=== PATIENT | female | born 1995 | race American Indian/Alaskan Native ===

== ENCOUNTER 2017-05-18 18:42 | Outpatient (CLI) | payer MEDICAID, OTHER ==
[2017-05-18 19:37] VITALS: BP 126/72
[2017-05-18 19:58] LABS: Bilirubin,Urine NEG (Negative); Blood,Urine SM (Negative); Mucus,Urine FEW /HPF; Nitrite,Urine NEG (Negative); Protein,Urine <15 mg/dL mg/dL (Negative); Urobilinogen,Urine < 2.0 mg/dL (<2.0)
[2017-05-18 19:59] LABS: Color,Urine Yellow (Yellow)
[2017-05-18] MEDS ORDERED: TYLENOL PO ONE (20:00)
[2017-05-18] MEDS ORDERED: LACTATED RINGERS 500 ML IV ONE (20:07)
== END 2017-05-18 20:15 | disposition home or self-care (01) ==
LOC: EDSTATUS 18:59 → TRG 19:01
PROVIDERS: ATTEND Obstetrics & Gynecology
DX: O26.892 Other specified pregnancy related conditions, second trimester (principal); R10.9 Unspecified abdominal pain; R25.2 Cramp and spasm; Z3A.24 24 weeks gestation of pregnancy
CPT/HCPCS: 59025; 81001

== ENCOUNTER 2017-06-30 21:18 | Outpatient (CLI) | payer OTHER ==
[2017-06-30 21:43] VITALS: BP 117/61
[2017-06-30] MEDS ORDERED: LACTATED RINGERS 1,000 ML IV ONE (22:14)
[2017-06-30 23:07] LABS: Bilirubin,Urine NEG (Negative); Blood,Urine NEG (Negative); Color,Urine Yellow (Yellow); Protein,Urine <15 mg/dL mg/dL (Negative)
== END 2017-06-30 23:35 | disposition home or self-care (01) ==
LOC: TRG 21:18
PROVIDERS: ATTEND Obstetrics & Gynecology
DX: O26.893 Other specified pregnancy related conditions, third trimester (principal); R25.2 Cramp and spasm; Z3A.29 29 weeks gestation of pregnancy
CPT/HCPCS: 59025; 81001

== ENCOUNTER 2017-07-24 00:56 | Outpatient (CLI) | payer OTHER ==
[2017-07-24] MEDS ORDERED: LACTATED RINGERS 1,000 ML IV ONE (01:03)
[2017-07-24 01:11] VITALS: BP 121/67
[2017-07-24 01:27] LABS: Bilirubin,Urine NEG (Negative); Blood,Urine NEG (Negative); Color,Urine Yellow (Yellow); Protein,Urine <15 mg/dL mg/dL (Negative); Urobilinogen,Urine < 2.0 mg/dL (<2.0)
[2017-07-24] MEDS: BRETHINE SUB-Q SCH ×2 (02:02→02:24)
== END 2017-07-24 03:15 | disposition home or self-care (01) ==
LOC: TRG 00:56
PROVIDERS: ATTEND Obstetrics & Gynecology
DX: O47.03 False labor before 37 completed weeks of gestation, third trimester (principal); Z3A.33 33 weeks gestation of pregnancy
CPT/HCPCS: 59025; 81001; 96360; 96361; J3105; J7120; 96370

== ENCOUNTER 2017-09-23 12:08 | Emergency (ER) | payer MEDICAID ==
[2017-09-23 12:26] VITALS: BP 138/91
[2017-09-23 13:58] LABS: Basophils % (Auto) 0.4 % (0.0-1.8); Eosinophils # (Auto) 0.1 K/mm3 (0.0-0.4); Eosinophils % (Auto) 2.7 % (0.0-4.3); Hematocrit 39.9 % (30.3-42.9); Hemoglobin 12.5 gm/dl (10.1-14.3); Lymphocytes # (Auto) 1.7 K/mm3 (1.2-5.4); Lymphocytes % (Auto) 34.7 % (13.4-35.0); Mean Corpuscular HGB Conc 31 % (30-34); Mean Corpuscular Hemoglobin 27 pg (28-32); Mean Corpuscular Volume 85 fl (79-97); Monocytes # (Auto) 0.3 K/mm3 (0.0-0.8); Monocytes % (Auto) 5.4 % (0.0-7.3); Platelet Count 203 K/mm3 (140-440); Red Blood Count 4.69 M/mm3 (3.65-5.03); Red Cell Distribution Width 16.6 % (13.2-15.2)
--- NOTE | 2017-09-23 14:01 | Emergency Department Report ---
ED Chest Pain HPI - General Chief Complaint: Chest Pain Stated Complaint: CHEST PAIN Time Seen by Provider: 09/23/17 13:50 Source: patient Mode of arrival: Ambulatory Limitations: No Limitations - History of Present Illness Initial Comments: 22-year-old female developed chest pain while at rest. Central chest pain radiating to neck and back. Lasted 15-20 minutes. 4 weeks s/p . History of gestational diabetes and -induced hypertension. Mother had NH age 34 MD Complaint: chest pain -: Sudden, minutes(s) (15-20) Onset: during rest Pain Location: left chest Pain Radiation: back, neck Severity: moderate Severity scale (0 -10): 7 Quality: heaviness, dull Consistency: constant Improves With: other (aspirin gaviscon improved) Worsens With: nothing Aspirin use within the Past 7 Days: (1) Yes - Related Data Home Medications Medication Instructions Recorded Confirmed Last Taken Pnv No.95/Ferrous Fum/Folic AC 1 tab PO QDAY 07/24/17 07/24/17 07/23/17 [ Vitamins Tablet] Allergies Allergy/AdvReac Type Severity Reaction Status Date / Time No Known Allergies Allergy Verified 08/31/13 22:31 Heart Score - HEART Score History: Slightly suspicious EKG: Normal Age: < 45 Risk factors: 1-2 risk factors Troponin: < normal limit HEART Score: 1 ED Review of Systems ROS: Stated complaint: CHEST PAIN Other details as noted in HPI Comment: All other systems reviewed and negative Constitutional: denies: chills, fever Respiratory: denies: cough, shortness of breath, wheezing Endocrine: no symptoms reported Gastrointestinal: denies: abdominal pain, nausea, diarrhea Skin: denies: rash, lesions Psychiatric: denies: anxiety, depression Hematological/Lymphatic: denies: easy bleeding, easy bruising ED Past Medical Hx - Past Medical History Hx Hypertension: No Hx Congestive Heart Failure: No Hx Diabetes: No Hx Deep Vein Thrombosis: No Hx Renal Disease: No Hx Sickle Cell Disease: No Hx Seizures: No Hx Asthma: No Hx COPD: No Hx HIV: No - Social History Smoking Status: Never Smoker Substance Use Type: None - Medications Home Medications: Home Medications Medication Instructions Recorded Confirmed Last Taken Type Pnv No.95/Ferrous Fum/Folic AC 1 tab PO QDAY 07/24/17 07/24/17 07/23/17 History [ Vitamins Tablet] ED Physical Exam - General Limitations: No Limitations General appearance: alert, in no apparent distress - Head Head exam: Present: atraumatic, normocephalic - Eye Eye exam: Present: normal appearance - ENT ENT exam: Present: mucous membranes moist - Neck Neck exam: Present: normal inspection. Absent: tenderness, meningismus - Respiratory Respiratory exam: Present: normal lung sounds bilaterally. Absent: respiratory distress, wheezes, rales, rhonchi - Cardiovascular Cardiovascular Exam: Present: regular rate, normal rhythm, normal heart sounds. Absent: systolic murmur, diastolic murmur, rubs, gallop - GI/Abdominal GI/Abdominal exam: Present: soft, normal bowel sounds. Absent: distended, tenderness, guarding, rebound - Extremities Exam Extremities exam: Present: normal inspection - Back Exam Back exam: Present: normal inspection - Neurological Exam Neurological exam: Present: alert, oriented X3 - Psychiatric Psychiatric exam: Present: normal affect, normal mood - Skin Skin exam: Present: warm, dry, intact, normal color. Absent: rash ED Course Vital Signs 09/23/17 12:18 Temperature 98.9 F Pulse Rate 67 Blood Pressure 138/91 O2 Sat by Pulse 100 Oximetry ED Medical Decision Making - Lab Data Result diagrams: 09/23/17 13:41 09/23/17 13:41 - EKG Data 09/23/17 14:05 rate 70 beats per minute no signs of pericarditis NSR nl rate nl axis nl intervals no ST-T signs of ischemia no ST elevation - Medical Decision Making chest pain low risk for ACS PERC negative d-dimer < 250 Possible dyspepsia GERD Given reassurance. Critical care attestation.: If time is entered above; I have spent that time in minutes in the direct care of this critically ill patient, excluding procedure time. ED Disposition Clinical Impression: Chest pain Disposition: DC-01 TO HOME OR SELFCARE Is pt being admited?: No Does the pt Need Aspirin: No Condition: Stable Instructions: Chest Pain (ED) Referrals: [facility] [Outside] - 3-5 Days Time of Disposition: 15:43
[2017-09-23 14:12] LABS: BUN/Creatinine Ratio 9; Blood Urea Nitrogen 7 mg/dL (7-17); Calcium 9.1 mg/dL (8.4-10.2); Hemolysis Index 5
--- NOTE | 2017-09-23 14:58 | XRay Report ---
FINAL REPORT EXAM: XR CHEST ROUTINE 2V HISTORY: chest pain TECHNIQUE: Frontal and lateral chest x-ray. PRIORS: None. FINDINGS: Cardiac and mediastinal silhouette within normal limits. Lungs are normally expanded and grossly clear. No pleural effusion or apparent pneumothorax. Bony thorax grossly unremarkable. IMPRESSION: 1. No acute findings.
== END 2017-09-23 15:53 | disposition home or self-care (01) ==
LOC: ED 12:08
DX: R07.9 Chest pain, unspecified (principal)
CPT/HCPCS: 36415; 71046; 80048; 82962; 84484; 85025; 85379; 93005; 93010

== ENCOUNTER 2018-06-11 20:06 | Emergency (ER) | payer SELFPAY | END 2018-06-11 20:16 | disposition left against medical advice (07) | LOC: ED 20:06 ==

== ENCOUNTER 2019-02-19 19:24 | Emergency (ER) | payer OTHER ==
[2019-02-19 21:23] VITALS: BP 123/73
--- NOTE | 2019-02-19 21:28 | Event Note ---
ED Screening Note Date of service: 02/19/19 Time: 21:24 ED Screening Note: Pt with no significant pmhx c/o low abd pain. onset 4-5 days ago. Intermittent in nature. reports increased pressure in low abd when trying to urinate but denies dysuria. +hematuria. denies vag bleeding or d/c. +n/v. +low back pain. This initial assessment/diagnostic orders/clinical plan/treatment(s) is/are subject to change based on patients health status, clinical progression and re- assessment by fellow clinical providers in the ED. Further treatment and workup at subsequent clinical providers discretion. Patient/guardian urged not to elope from the ED as their condition may be serious if not clinically assessed and managed. Initial orders include: CBC CMP UA HCG
[2019-02-19] MEDS ORDERED: SODIUM CHLORIDE 0.9% 1000 ML 1,000 ML IV ONE (21:34)
[2019-02-19 22:20] LABS: Alanine Aminotransferase 9 units/L (7-56); Albumin 4.4 g/dL (3.9-5); BUN/Creatinine Ratio 11; Blood Urea Nitrogen 9 mg/dL (7-17); Calcium 9.2 mg/dL (8.4-10.2); Hemolysis Index 2
[2019-02-19 22:43] LABS: Bilirubin,Urine NEG (Negative); Blood,Urine MOD (Negative); Color,Urine Yellow (Yellow); Mucus,Urine 2+ /HPF
[2019-02-19 22:46] LABS: Basophils % (Auto) 0.5 % (0.0-1.8); Eosinophils # (Auto) 0.2 K/mm3 (0.0-0.4); Eosinophils % (Auto) 2.7 % (0.0-4.3); Hematocrit 36.9 % (30.3-42.9); Hemoglobin 11.9 gm/dl (10.1-14.3); Lymphocytes # (Auto) 2.4 K/mm3 (1.2-5.4); Lymphocytes % (Auto) 32.3 % (13.4-35.0); Mean Corpuscular HGB Conc 32 % (30-34); Mean Corpuscular Volume 78 fl (79-97); Monocytes # (Auto) 0.5 K/mm3 (0.0-0.8); Monocytes % (Auto) 6.4 % (0.0-7.3); Platelet Count 255 K/mm3 (140-440); Red Blood Count 4.71 M/mm3 (3.65-5.03); Red Cell Distribution Width 16.9 % (13.2-15.2)
--- NOTE | 2019-02-19 23:28 | Cat Scan Report ---
CT ABDOMEN AND PELVIS WITHOUT CONTRAST INDICATION / CLINICAL INFORMATION: Hematuria, low abd pain, low back pain. TECHNIQUE: Axial CT images were obtained through the abdomen and pelvis without IV contrast. All CT scans at [facility] location are performed using CT dose reduction for ALARA by means of automated exposure control. COMPARISON: None available. FINDINGS: LOWER CHEST: No significant abnormality. LIVER: No significant abnormality. GALLBLADDER: No significant abnormality. BILE DUCTS: No significant abnormality. PANCREAS: No significant abnormality. SPLEEN: No significant abnormality. ADRENALS: No significant abnormality. 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 No stones or hydron ephrosis. LEFT KIDNEY and URETER: No significant abnormality. STOMACH and SMALL BOWEL: No significant abnormality. COLON: No significant abnormality. APPENDIX: No significant abnormality. PERITONEUM: No free fluid. No free air. No fluid collection. LYMPH NODES: No significant adenopathy. AORTA and ARTERIES: No significant abnormality. IVC and VEINS: Incidental note of circumaortic left renal vein. No acute abnormality. URINARY BLADDER: No stones. No acute findings. REPRODUCTIVE ORGANS: 2.7 cm left ovarian follicle. ADDITIONAL FINDINGS: None. SKELETAL SYSTEM: No significant abnormality. IMPRESSION: 1. No stones or hydronephrosis. 2. No inflammatory process or bowel obstruction. No acute findings. Signer Name: Eben Dai MD Signed: 02/19/2019 11:23 PM Workstation Name: [id number]
--- NOTE | 2019-02-19 23:49 | Emergency Department Report ---
ED Abdominal Pain HPI - General Chief Complaint: Abdominal Pain Stated Complaint: ABD PAIN BLOOD IN URINE PAINFUL WEAKNESS Time Seen by Provider: 02/19/19 21:24 Source: patient Mode of arrival: Ambulatory Limitations: No Limitations - History of Present Illness Initial Comments: Pt is a 23 y/o aaf with no significant pmhx who presents for c/o low abd pain. onset 4-5 days. pt deneis fever or chills, no n/v. Symptoms are intermittent in nature and include urinary freqeuncy and urgency. No hematuria, no vaginal discharge, or bleeding, LMP was 2 weeks ago. There is 2/10 right flank pain intermittent. with urination. no hx of renal stones. MD Complaint: abdominal pain, flank pain Onset/Timin -: week(s) Location: R flank Radiation: suprapubic Migration to: suprapubic Severity: moderate Severity scale (0 -10): 4 Quality: aching Consistency: intermittent Improves With: nothing Worsens With: nothing Associated Symptoms: dysuria. denies: nausea, vomiting, fever, chills, melena, hematuria - Related Data LMP Date: 01/28/19 Home Medications Medication Instructions Recorded Confirmed Last Taken Pnv No.95/Ferrous Fum/Folic AC 1 tab PO QDAY 07/24/17 07/24/17 07/23/17 [ Vitamins Tablet] Previous Rx's Medication Instructions Recorded Last Taken Type Ibuprofen [Motrin 800 MG tab] 800 mg PO Q8HR PRN #30 tablet 02/19/19 Unknown Rx Nitrofurantoin Pershing/M-Cryst 100 mg PO BID 7 Days #14 capsule 02/19/19 Unknown Rx [Macrobid CAP] Allergies Allergy/AdvReac Type Severity Reaction Status Date / Time No Known Allergies Allergy Verified 08/31/13 22:31 ED Review of Systems ROS: Stated complaint: ABD PAIN BLOOD IN URINE PAINFUL WEAKNESS Other details as noted in HPI Constitutional: denies: chills, fever Eyes: denies: eye pain, eye discharge, vision change ENT: denies: ear pain, throat pain Respiratory: denies: cough, shortness of breath, wheezing Cardiovascular: denies: chest pain, palpitations Endocrine: no symptoms reported Gastrointestinal: abdominal pain. denies: nausea, vomiting, diarrhea, melena Genitourinary: urgency, dysuria, frequency. denies: hematuria, discharge Musculoskeletal: back pain (right flank pain intermittent.) Skin: denies: rash, lesions Neurological: denies: headache, weakness, paresthesias Psychiatric: denies: anxiety, depression Hematological/Lymphatic: denies: easy bleeding, easy bruising ED Past Medical Hx - Past Medical History Previous Medical History?: No Hx Hypertension: No Hx Congestive Heart Failure: No Hx Diabetes: No Hx Deep Vein Thrombosis: No Hx Renal Disease: No Hx Sickle Cell Disease: No Hx Seizures: No Hx Asthma: No Hx COPD: No Hx HIV: No - Surgical History Past Surgical History?: Yes Additional Surgical History: - Social History Smoking Status: Never Smoker Substance Use Type: None - Medications Home Medications: Home Medications Medication Instructions Recorded Confirmed Last Taken Type Pnv No.95/Ferrous Fum/Folic AC 1 tab PO QDAY 07/24/17 07/24/17 07/23/17 History [ Vitamins Tablet] Ibuprofen [Motrin 800 MG tab] 800 mg PO Q8HR PRN #30 tablet 02/19/19 Unknown Rx Nitrofurantoin Pershing/M-Cryst 100 mg PO BID 7 Days #14 capsule 02/19/19 Unknown Rx [Macrobid CAP] ED Physical Exam - General Limitations: No Limitations General appearance: alert, in no apparent distress - Head Head exam: Present: atraumatic, normocephalic - Eye Eye exam: Present: normal appearance, PERRL, EOMI Pupils: Present: normal accommodation - ENT ENT exam: Present: normal exam - Neck Neck exam: Present: normal inspection, full ROM - Respiratory Respiratory exam: Present: normal lung sounds bilaterally. Absent: respiratory distress, wheezes, stridor - Cardiovascular Cardiovascular Exam: Present: regular rate, normal rhythm, normal heart sounds. Absent: systolic murmur, diastolic murmur, rubs, gallop - GI/Abdominal GI/Abdominal exam: Present: soft, normal bowel sounds. Absent: distended, tenderness, bruit, hernia - Rectal Rectal exam: Present: deferred - Extremities Exam Extremities exam: Present: normal inspection. Absent: full ROM, tenderness - Back Exam Back exam: Present: normal inspection, full ROM, tenderness, CVA tenderness (R). Absent: CVA tenderness (L), muscle spasm, rash noted - Neurological Exam Neurological exam: Present: alert, oriented X3, CN II-XII intact, normal gait - Psychiatric Psychiatric exam: Present: normal affect, normal mood - Skin Skin exam: Present: warm, dry, intact, normal color. Absent: rash ED Course Vital Signs 02/19/19 19:47 Temperature 98.8 F Pulse Rate 100 H Respiratory 18 Rate Blood Pressure 123/73 O2 Sat by Pulse 99 Oximetry ED Medical Decision Making - Lab Data Result diagrams: 02/19/19 21:43 02/19/19 21:43 Labs 02/19/19 02/19/19 02/19/19 21:43 21:43 21:43 WBC 7.5 RBC 4.71 Hgb 11.9 Hct 36.9 MCV 78 L MCH 25 L MCHC 32 RDW 16.9 H Plt Count 255 Lymph % (Auto) 32.3 Pershing % (Auto) 6.4 Eos % (Auto) 2.7 Baso % (Auto) 0.5 Lymph # 2.4 Pershing # 0.5 Eos # 0.2 Baso # 0.0 Seg Neutrophils % 58.1 Seg Neutrophils # 4.4 Sodium 137 Potassium 3.6 Chloride 101.5 Carbon Dioxide 24 Anion Gap 15 BUN 9 Creatinine 0.8 Estimated GFR > 60 BUN/Creatinine Ratio 11 Glucose 104 H Calcium 9.2 Total Bilirubin 0.40 AST 13 ALT 9 Alkaline Phosphatase 85 Total Protein 7.8 Albumin 4.4 Albumin/Globulin Ratio 1.3 HCG, Qual Negative Urine Color Urine Turbidity Urine pH Ur Specific [place] Urine Protein Urine Glucose (UA) Urine Ketones Urine Blood Urine Nitrite Urine Bilirubin Urine Urobilinogen Ur Leukocyte Esterase Urine WBC (Auto) Urine RBC (Auto) U Epithel Cells (Auto) Urine Mucus 02/19/19 22:13 WBC RBC Hgb Hct MCV MCH MCHC RDW Plt Count Lymph % (Auto) Pershing % (Auto) Eos % (Auto) Baso % (Auto) Lymph # Pershing # Eos # Baso # Seg Neutrophils % Seg Neutrophils # Sodium Potassium Chloride Carbon Dioxide Anion Gap BUN Creatinine Estimated GFR BUN/Creatinine Ratio Glucose Calcium Total Bilirubin AST ALT Alkaline Phosphatase Total Protein Albumin Albumin/Globulin Ratio HCG, Qual Urine Color Yellow Urine Turbidity Cloudy Urine pH 6.0 Ur Specific [place] 1.020 Urine Protein 30 mg/dl Urine Glucose (UA) Neg Urine Ketones Neg Urine Blood Mod Urine Nitrite Neg Urine Bilirubin Neg Urine Urobilinogen 4.0 Ur Leukocyte Esterase Sm Urine WBC (Auto) 41.0 H Urine RBC (Auto) 35.0 U Epithel Cells (Auto) 20.0 H Urine Mucus 2+ - Radiology Data Radiology results: report reviewed, image reviewed Ordering Physician: HANNAH CONWAY Date of Service: 02/19/19 Procedure(s): CT abdomen pelvis wo con Accession Number(s): [id number] cc: HANNAH Rona CONWAY CT ABDOMEN AND PELVIS WITHOUT CONTRAST INDICATION / CLINICAL INFORMATION: Hematuria, low abd pain, low back pain. TECHNIQUE: Axial CT images were obtained through the abdomen and pelvis without IV contrast. All CT scans at this location are performed using CT dose reduction for ALARA by means of automated exposure control. COMPARISON: None available. FINDINGS: LOWER CHEST: No significant abnormality. LIVER: No significant abnormality. GALLBLADDER: No significant abnormality. BILE DUCTS: No significant abnormality. PANCREAS: No significant abnormality. SPLEEN: No significant abnormality. ADRENALS: No significant abnormality. 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 No stones or hydronephrosis. LEFT KIDNEY and URETER: No significant abnormality. STOMACH and SMALL BOWEL: No significant abnormality. COLON: No significant abnormality. APPENDIX: No significant abnormality. PERITONEUM: No free fluid. No free air. No fluid collection. LYMPH NODES: No significant adenopathy. AORTA and ARTERIES: No significant abnormality. IVC and VEINS: Incidental note of circumaortic left renal vein. No acute abnormality. URINARY BLADDER: No stones. No acute findings. REPRODUCTIVE ORGANS: 2.7 cm left ovarian follicle. ADDITIONAL FINDINGS: None. SKELETAL SYSTEM: No significant abnormality. IMPRESSION: 1. No stones or hydronephrosis. 2. No inflammatory process or bowel obstruction. No acute findings. Signer Name: Eben Dai MD Signed: 02/19/2019 11:23 PM Workstation Name: [id number] Transcribed By: DT Dictated By: Yobany Dai MD Electronically Authenticated By: Yobany Dai MD Signed Date/Time: 02/19/192322 DD/ 19 TD/TT: - Medical Decision Making UA: consstent with UTI : CT abd/pelvis: no renal stones, left ovarian cyst. plan: macrobid, ibuprofen, follow up with pcp in 2-3 days, pt given follow up with [facility]. pt verbalized agreement and understanding of same. Critical care attestation.: If time is entered above; I have spent that time in minutes in the direct care of this critically ill patient, excluding procedure time. ED Disposition Clinical Impression: Ovarian cyst, left UTI (urinary tract infection) Qualifiers: Urinary tract infection type: acute cystitis Hematuria presence: without hematuria Qualified Code(s): N30.00 - Acute cystitis without hematuria Disposition: TO HOME OR SELFCARE Is pt being admited?: No Does the pt Need Aspirin: No Condition: Stable Instructions: Urinary Tract Infection in Women (ED), Ovarian Cyst (ED) Prescriptions: Nitrofurantoin Pershing/M-Cryst [Macrobid CAP] 100 mg PO BID 7 Days #14 capsule Ibuprofen [Motrin 800 MG tab] 800 mg PO Q8HR PRN #30 tablet PRN Reason: pain Referrals: [facility] [Outside] - 3-5 Days Forms: Work/School Release Form(ED) Time of Disposition: 23:54
[2019-02-20] MEDS ORDERED: ONDANSETRON 4 MG/2 ML INJ ONE (00:19)
[2019-02-20] MEDS ORDERED: ONDANSETRON 4 MG/2 ML INJ IV ONE (00:20)
== END 2019-02-20 00:33 | disposition home or self-care (01) ==
LOC: ED 19:24
DX: N83.202 Unspecified ovarian cyst, left side (principal); N39.0 Urinary tract infection, site not specified; R11.2 Nausea with vomiting, unspecified; Z79.899 Other long term (current) drug therapy
CPT/HCPCS: 36415; 74176; 80053; 81001; 84703; 85025; 87076; 87086; 87186; 96361; 96374; 99284; J2405; J7030

== ENCOUNTER 2019-05-07 18:37 | Emergency (ER) | payer OTHER ==
[2019-05-07 18:52] VITALS: BP 140/80
[2019-05-07] MEDS ORDERED: ONDANSETRON 4 MG/2 ML INJ IV ONE (19:54)
[2019-05-07] MEDS ORDERED: SODIUM CHLORIDE 0.9% 1000 ML 1,000 ML IV ONE (19:54)
--- NOTE | 2019-05-07 19:55 | Event Note ---
ED Screening Note Date of service: 05/07/19 Time: 19:52 ED Screening Note: 24 y o female presents at 15 weeks gestation presents for bentley, n, v, fatigue and inability to hold down food states feeling week denies vag bleed, pelv pain This initial assessment/diagnostic orders/clinical plan/treatment(s) is/are subject to change based on patients health status, clinical progression and re- assessment by fellow clinical providers in the ED. Further treatment and workup at subsequent clinical providers discretion. Patient/guardian urged not to elope from the ED as their condition may be serious if not clinically assessed and managed. Initial orders include: ivf ua, upt
[2019-05-07] MEDS ORDERED: ACETAMINOPHEN 500 MG TAB ONE (20:07)
[2019-05-07] MEDS ORDERED: ACETAMINOPHEN 500 MG TAB PO ONE (20:08)
[2019-05-07] MEDS: ACETAMINOPHEN 325 MG/10.15 ML ORAL LIQD UNIT DOSE PO STA ×2 (20:15→23:10)
[2019-05-07 20:38] LABS: Bilirubin,Urine NEG (Negative); Blood,Urine NEG (Negative); Color,Urine Yellow (Yellow); Mucus,Urine FEW /HPF; Protein,Urine <15 mg/dL mg/dL (Negative); Urobilinogen,Urine < 2.0 mg/dL (<2.0)
[2019-05-07 21:13] LABS: Basophils % (Auto) 0.4 % (0.0-1.8); Eosinophils # (Auto) 0.1 K/mm3 (0.0-0.4); Eosinophils % (Auto) 0.6 % (0.0-4.3); Hematocrit 33.7 % (30.3-42.9); Hemoglobin 11.1 gm/dl (10.1-14.3); Lymphocytes # (Auto) 1.9 K/mm3 (1.2-5.4); Lymphocytes % (Auto) 23.7 % (13.4-35.0); Mean Corpuscular HGB Conc 33 % (30-34); Mean Corpuscular Volume 80 fl (79-97); Monocytes # (Auto) 0.4 K/mm3 (0.0-0.8); Monocytes % (Auto) 4.6 % (0.0-7.3); Platelet Count 228 K/mm3 (140-440); Red Blood Count 4.25 M/mm3 (3.65-5.03); Red Cell Distribution Width 17.5 % (13.2-15.2)
--- NOTE | 2019-05-07 21:26 | Ultrasound Report ---
Stat call ultrasound. 05/07/2019. HISTORY: . Bleeding. FINDINGS: A single viable intrauterine is dated 14 weeks 5 days. heart tones are 160 bpm No complication is identified. IMPRESSION: Single viable intrauterine dated 14 weeks 5 days. Signer Name: Tc Smith MD Signed: 05/07/2019 9:22 PM Workstation Name: [id number]
[2019-05-07 21:33] LABS: BUN/Creatinine Ratio 7; Blood Urea Nitrogen 4 mg/dL (7-17); Calcium 9.4 mg/dL (8.4-10.2); Hemolysis Index 0
--- NOTE | 2019-05-07 22:35 | Emergency Department Report ---
ED N/V/D HPI - General Chief complaint: Vaginal Bleeding Stated complaint: 15WKS /BLEEDING/PAIN Time Seen by Provider: 05/07/19 20:26 Source: patient Mode of arrival: Ambulatory Limitations: No Limitations - History of Present Illness Initial comments: 24-year-old morbidly obese female patient presents emergency department complaining of recurrent nausea and vomiting. She reports began about 15 weeks . And so the care of her [employer] she's been compliant with her appointments. States that today she's been some issues keeping food down and having vomiting and nausea with some occasional associated tightness to her abdomen she reports no vaginal discharge or bleeding. No fevers chills or sweats. Has associated headaches, visual changes and worsening nausea. MD complaint: nausea, vomiting Associated Abdominal Pain: No Severity: mild Improves with: none Worsens with: none Associated Symptoms: denies: cough, diaphoresis - Related Data Home Medications Medication Instructions Recorded Confirmed Last Taken Pnv No.95/Ferrous Fum/Folic AC 1 tab PO QDAY 07/24/17 07/24/17 07/23/17 [ Vitamins Tablet] Previous Rx's Medication Instructions Recorded Last Taken Type Ibuprofen [Motrin 800 MG tab] 800 mg PO Q8HR PRN #30 tablet 02/19/19 Unknown Rx Nitrofurantoin [place]/M-Cryst 100 mg PO BID 7 Days #14 capsule 02/19/19 Unknown Rx [Macrobid CAP] Doxylamine Succinate/Vit B6 1 each PO BID #20 tablet. 05/07/19 Unknown Rx [Shannan March 10-10 mg Tablet] Allergies Allergy/AdvReac Type Severity Reaction Status Date / Time No Known Allergies Allergy Verified 08/31/13 22:31 ED Review of Systems ROS: Stated complaint: 15WKS /BLEEDING/PAIN Other details as noted in HPI Comment: All other systems reviewed and negative ED Past Medical Hx - Past Medical History Previous Medical History?: No Hx Hypertension: No Hx Congestive Heart Failure: No Hx Diabetes: No Hx Deep Vein Thrombosis: No Hx Renal Disease: No Hx Sickle Cell Disease: No Hx Seizures: No Hx Asthma: No Hx COPD: No Hx HIV: No - Surgical History Past Surgical History?: Yes Additional Surgical History: - Social History Smoking Status: Never Smoker Substance Use Type: None - Medications Home Medications: Home Medications Medication Instructions Recorded Confirmed Last Taken Type Pnv No.95/Ferrous Fum/Folic AC 1 tab PO QDAY 07/24/17 07/24/17 07/23/17 History [ Vitamins Tablet] Ibuprofen [Motrin 800 MG tab] 800 mg PO Q8HR PRN #30 tablet 02/19/19 Unknown Rx Nitrofurantoin [place]/M-Cryst 100 mg PO BID 7 Days #14 capsule 02/19/19 Unknown Rx [Macrobid CAP] Doxylamine Succinate/Vit B6 1 each PO BID #20 tablet. 05/07/19 Unknown Rx [Diclegis Dr 10-10 mg Tablet] ED Physical Exam - General Limitations: No Limitations General appearance: alert, in no apparent distress - Head Head exam: Present: atraumatic, normocephalic - Eye Eye exam: Present: normal appearance, PERRL, EOMI Pupils: Present: normal accommodation - ENT ENT exam: Present: mucous membranes moist - Neck Neck exam: Present: normal inspection - Respiratory Respiratory exam: Present: normal lung sounds bilaterally. Absent: respiratory distress, wheezes, rales, rhonchi, chest wall tenderness, accessory muscle use, decreased breath sounds - Cardiovascular Cardiovascular Exam: Present: regular rate, normal rhythm. Absent: systolic murmur, diastolic murmur, rubs, gallop - GI/Abdominal GI/Abdominal exam: Present: soft, normal bowel sounds. Absent: tenderness, guarding, rebound, hyperactive bowel sounds, organomegaly - Extremities Exam Extremities exam: Present: normal inspection, normal capillary refill - Back Exam Back exam: Present: normal inspection. Absent: CVA tenderness (R), CVA tenderness (L) - Neurological Exam Neurological exam: Present: alert, oriented X3, CN II-XII intact, normal gait - Psychiatric Psychiatric exam: Present: normal affect, normal mood - Skin Skin exam: Present: warm, dry, intact, normal color. Absent: rash ED Course Vital Signs 05/07/19 18:40 Temperature 98.9 F Pulse Rate 97 H Respiratory 16 Rate Blood Pressure 140/80 O2 Sat by Pulse 99 Oximetry ED Medical Decision Making - Lab Data Result diagrams: 05/07/19 20:54 05/07/19 20:54 - Radiology Data Radiology results: report reviewed Referring Physician: ED DOC Patient Name: SHELLY CAPONE Date of : 1995 Sex: Female Report Date: 2019-05-07 Report Status: Finalized Findings [facility] [address] [place] [address] Ultrasound Report Signed Patient: SHELLY CAPONE MR#: [id number] : 1995 Acct:[id number] Age/Sex: 24 / F ADM Date: 05/07/19 Loc: ED Attending Dr: Ordering Physician: XOCHITL DING MD Date of Service: 05/07/19 Procedure(s): US OB >= 14 weeks Fetus Accession Number(s): [id number] cc: XOCHITL DING MD Stat call ultrasound. 05/07/2019. HISTORY: . Bleeding. FINDINGS: A single viable intrauterine is dated 14 weeks 5 days. heart tones are 160 bpm No complication is identified. IMPRESSION: Single viable intrauterine dated 14 weeks 5 days. Signer Name: Tc Smith MD Signed: 05/07/2019 9:22 PM Workstation Name: [id number] Transcribed By: ES Dictated By: Tc Smith MD Electronically Authenticated By: Tc Smith MD Signed Date/Time: 05/07/192121 DD/ 19 TD/TT: - Medical Decision Making The cause of the patients symptoms is not clear, but the patient is overall well appearing and is suspected to have a transient course hyperemesis gravidarum. She reports no possible foodborne illness or fever chills no foreign travel symptoms appear to be associated with the . The sensitivity responding well to the treatment of fluids and anti-emetics. The patient reports no vaginal bleeding or vaginal discharge during these episodes noted that the patient reports this in her written admission chief complaint Given History and Exam there does not appear to be an emergent cause of the symptoms such as small bowel obstruction, coronary syndrome, bowel ischemia, DKA, pancreatitis, appendicitis, other acute abdomen or other emergent problem. Reassessment: After treatment, the patient is feeling much better, tolerating PO fluids, and shows no signs of dehydration Critical care attestation.: If time is entered above; I have spent that time in minutes in the direct care of this critically ill patient, excluding procedure time. ED Disposition Clinical Impression: URI (upper respiratory infection), Cough, Hyperemesis, Normal obstetric ultrasound scan in second trimester Disposition: DC-01 TO HOME OR SELFCARE Is pt being admited?: No Does the pt Need Aspirin: No Condition: Stable Instructions: Hyperemesis Gravidarum (ED) Prescriptions: Doxylamine Succinate/Vit B6 [Shannan March 10-10 mg Tablet] 1 each PO BID #20 tablet. Referrals: [facility] [Provider Group] - 3-5 Days
[2019-05-07] MEDS ORDERED: ACETAMINOPHEN 325 MG/10.15 ML ORAL LIQD UNIT DOSE PO ONE (23:07)
== END 2019-05-07 23:12 | disposition home or self-care (01) ==
LOC: ED 18:37
DX: O99.512 Diseases of the respiratory system complicating pregnancy, second trimester (principal); J06.9 Acute upper respiratory infection, unspecified; O21.0 Mild hyperemesis gravidarum; Z79.899 Other long term (current) drug therapy; Z3A.14 14 weeks gestation of pregnancy
CPT/HCPCS: 36415; 76805; 80048; 81001; 84702; 85025; 96361; 96374; 99284; J2405; J7030

== ENCOUNTER 2019-09-22 10:14 | Outpatient (CLI) | payer SELFPAY ==
[2019-09-22] MEDS ORDERED: LACTATED RINGERS 1,000 ML ONE (10:45)
[2019-09-22] MEDS ORDERED: LACTATED RINGERS 500 ML IV ONE (11:00)
[2019-09-22 12:27] LABS: Bacteria,Urine 2+ /HPF (Negative); Bilirubin,Urine NEG (Negative); Blood,Urine NEG (Negative); Color,Urine Yellow (Yellow); Mucus,Urine FEW /HPF; Protein,Urine <15 mg/dL mg/dL (Negative)
[2019-09-22 12:32] VITALS: BP 119/67
== END 2019-09-22 12:44 | disposition home or self-care (01) ==
LOC: TRG 10:14 → APU 10:14 → TRG 12:44
PROVIDERS: ATTEND Obstetrics & Gynecology
DX: O62.9 Abnormality of forces of labor, unspecified (principal); O22.43 Hemorrhoids in pregnancy, third trimester; O99.89 Other specified diseases and conditions complicating pregnancy, childbirth and the puerperium; H53.8 Other visual disturbances; O24.419 Gestational diabetes mellitus in pregnancy, unspecified control; Z3A.34 34 weeks gestation of pregnancy
CPT/HCPCS: 81001; J7120; 96360

== ENCOUNTER 2020-06-12 08:35 | Emergency (ER) | payer BC ==
[2020-06-12 08:41] VITALS: BP 133/73
--- NOTE | 2020-06-12 08:46 | Emergency Department Report ---
ED ENT HPI - General Chief complaint: Sore Throat Stated complaint: SORE THROAT/WHITE PATCHES/HOWARD/FEVER Time Seen by Provider: 06/12/20 08:42 Source: patient Mode of arrival: Ambulatory Limitations: No Limitations - History of Present Illness Initial comments: Patient is a 25-year-old female who presents to ED complaining of throat pain 5 days. Patient describes pain as throbbing in nature, 8 out of 10 intensity, nonradiating, localized to his throat. Admits pain with swallowing and eating. Patient admits no appetite due to throat pain. Patient admits fever for the first 2 days which she has been taking Tylenol for but not at the moment. Patient denies nausea/vomiting/abdominal pain/shortness of breath/chest pain/headache. MD complaint: sore throat (x 5 days) Severity: moderate Quality: aching Worsens with: swallowing - Related Data Previous Rx's Medication Instructions Recorded Last Taken Type Ferrous Sulfate [Feosol 325 MG tab] 325 mg PO BID #60 tablet 10/23/19 Unknown Rx Ibuprofen [Motrin] 600 mg PO Q6H PRN #60 tablet 10/23/19 Unknown Rx Ciprofloxacin HCl [Ciprofloxacin 500 mg PO Q12HR #20 tab 01/07/20 Unknown Rx TAB] metroNIDAZOLE [Flagyl] 500 mg PO Q8HR #30 tablet 01/07/20 Unknown Rx traMADoL [Ultram 50 MG tab] 50 mg PO Q6HR PRN #20 tablet 01/07/20 Unknown Rx Famotidine [Pepcid] 20 mg PO BID #20 tablet 01/08/20 Unknown Rx Mag Hydrox/Aluminum Hyd/Simeth 20 ml PO QID PRN #1 bottle 01/08/20 Unknown Rx [Maalox Advanced Suspension] Amoxicillin [Trimox CAP] 500 mg PO Q8H #21 capsule 06/12/20 Unknown Rx Nystas/Diphen/Xyl Visc/Mylanta 15 ml MM Q6H PRN #120 ml 06/12/20 Unknown Rx [Magic Mouthwash] Allergies Allergy/AdvReac Type Severity Reaction Status Date / Time No Known Allergies Allergy Verified 06/12/20 08:36 ED Dental HPI - General Chief complaint: Sore Throat Stated complaint: SORE THROAT/WHITE PATCHES/HOWARD/FEVER Time Seen by Provider: 06/12/20 08:42 Source: patient Mode of arrival: Ambulatory Limitations: No Limitations - Related Data Previous Rx's Medication Instructions Recorded Last Taken Type Ferrous Sulfate [Feosol 325 MG tab] 325 mg PO BID #60 tablet 10/23/19 Unknown Rx Ibuprofen [Motrin] 600 mg PO Q6H PRN #60 tablet 10/23/19 Unknown Rx Ciprofloxacin HCl [Ciprofloxacin 500 mg PO Q12HR #20 tab 01/07/20 Unknown Rx TAB] metroNIDAZOLE [Flagyl] 500 mg PO Q8HR #30 tablet 01/07/20 Unknown Rx traMADoL [Ultram 50 MG tab] 50 mg PO Q6HR PRN #20 tablet 01/07/20 Unknown Rx Famotidine [Pepcid] 20 mg PO BID #20 tablet 01/08/20 Unknown Rx Mag Hydrox/Aluminum Hyd/Simeth 20 ml PO QID PRN #1 bottle 01/08/20 Unknown Rx [Maalox Advanced Suspension] Amoxicillin [Trimox CAP] 500 mg PO Q8H #21 capsule 06/12/20 Unknown Rx Nystas/Diphen/Xyl Visc/Mylanta 15 ml MM Q6H PRN #120 ml 06/12/20 Unknown Rx [Magic Mouthwash] Allergies Allergy/AdvReac Type Severity Reaction Status Date / Time No Known Allergies Allergy Verified 06/12/20 08:36 ED Review of Systems ROS: Stated complaint: SORE THROAT/WHITE PATCHES/HOWARD/FEVER Other details as noted in HPI Comment: All other systems reviewed and negative ED Past Medical Hx - Past Medical History Hx Hypertension: No Hx Congestive Heart Failure: No Hx Diabetes: Yes (GDM) Hx Deep Vein Thrombosis: No Hx Renal Disease: No Hx Sickle Cell Disease: No Hx Seizures: No Hx Asthma: Yes (childhood asthma) Hx COPD: No Hx HIV: No - Surgical History Additional Surgical History: - Social History Smoking Status: Never Smoker Substance Use Type: None - Medications Home Medications: Home Medications Medication Instructions Recorded Confirmed Last Taken Type Ferrous Sulfate [Feosol 325 MG tab] 325 mg PO BID #60 tablet 10/23/19 Unknown Rx Ibuprofen [Motrin] 600 mg PO Q6H PRN #60 tablet 10/23/19 Unknown Rx Ciprofloxacin HCl [Ciprofloxacin 500 mg PO Q12HR #20 tab 01/07/20 Unknown Rx TAB] metroNIDAZOLE [Flagyl] 500 mg PO Q8HR #30 tablet 01/07/20 Unknown Rx traMADoL [Ultram 50 MG tab] 50 mg PO Q6HR PRN #20 tablet 01/07/20 Unknown Rx Famotidine [Pepcid] 20 mg PO BID #20 tablet 01/08/20 Unknown Rx Mag Hydrox/Aluminum Hyd/Simeth 20 ml PO QID PRN #1 bottle 01/08/20 Unknown Rx [Maalox Advanced Suspension] Amoxicillin [Trimox CAP] 500 mg PO Q8H #21 capsule 06/12/20 Unknown Rx Nystas/Diphen/Xyl Visc/Mylanta 15 ml MM Q6H PRN #120 ml 06/12/20 Unknown Rx [Magic Mouthwash] ED Physical Exam - General Limitations: No Limitations General appearance: alert, in no apparent distress - Head Head exam: Present: atraumatic, normocephalic - Eye Eye exam: Present: normal appearance - ENT ENT exam: Present: mucous membranes moist - Expanded ENT Exam Expanded Mouth exam: Present: normal external inspection Teeth exam: Present: normal inspection Throat exam: Positive: tonsillomegaly, tonsillar exudate - Neck Neck exam: Present: normal inspection, full ROM, lymphadenopathy - Respiratory Respiratory exam: Present: normal lung sounds bilaterally. Absent: respiratory distress - Cardiovascular Cardiovascular Exam: Present: regular rate, normal rhythm. Absent: systolic murmur, diastolic murmur, rubs, gallop - GI/Abdominal GI/Abdominal exam: Present: soft, normal bowel sounds - Extremities Exam Extremities exam: Present: normal inspection - Back Exam Back exam: Present: normal inspection - Neurological Exam Neurological exam: Present: alert, oriented X3 - Psychiatric Psychiatric exam: Present: normal affect, normal mood - Skin Skin exam: Present: warm, dry, intact, normal color. Absent: rash ED Course Vital Signs 06/12/20 08:37 Temperature 98.3 F Pulse Rate 85 Respiratory 20 Rate Blood Pressure 133/73 O2 Sat by Pulse 99 Oximetry ED Medical Decision Making - Medical Decision Making 25-year-old female presents with acute bacterial pharyngitis. ED course: Rapid strep tests ordered rapid strep test negative No fever throughout ED stay Vital signs stable patient is in no acute or respiratory distress. Discussed findings with patient and plan is to treat patient with at home antibiotics due to clinical findings. Discussed treatment in ED with patient Discussed the patient that strep throat is contagious and to limit sharing spoons and such.. Discussed with patient follow-up with primary care physician. Patient verbally states he understands and will comply to follow-up. Critical care attestation.: If time is entered above; I have spent that time in minutes in the direct care of this critically ill patient, excluding procedure time. ED Disposition Clinical Impression: Pharyngitis, Acute bacterial tonsillitis Disposition: TO HOME OR SELFCARE Is pt being admited?: No Does the pt Need Aspirin: No Condition: Stable Instructions: Tonsillitis, [id number], Pharyngitis Additional Instructions: Make sure to follow up with the primary care physician as discussed. Take all your medications as you've been prescribed. If you have any worsening symptoms or develop new symptoms please return to ED immediately. Prescriptions: Nystas/Diphen/Xyl Visc/Mylanta [Magic Mouthwash] 15 ml MM Q6H PRN #120 ml PRN Reason: Sore Throat Amoxicillin [Trimox CAP] 500 mg PO Q8H #21 capsule Referrals: PRIMARY CARE, [Primary Care Provider] - 3-5 Days [facility] [Outside] - 3-5 Days Forms: Work/School Release Form(ED)
== END 2020-06-12 09:07 | disposition home or self-care (01) ==
LOC: ED 08:35
DX: J02.8 Acute pharyngitis due to other specified organisms (principal); B96.89 Other specified bacterial agents as the cause of diseases classified elsewhere; J45.909 Unspecified asthma, uncomplicated; Z98.890 Other specified postprocedural states; Z79.1 Long term (current) use of non-steroidal anti-inflammatories (NSAID); Z79.2 Long term (current) use of antibiotics; Z79.899 Other long term (current) drug therapy
CPT/HCPCS: 87116; 87430